=== PATIENT | male | born 2000 | race Caucasian/White ===

== ENCOUNTER 2019-01-30 07:15 | Day surgery (SDC) | payer BC ==
[~2019-01-30 07:15] MED LIST: Lactated Ringers 1,000 ML IV SCH
[2019-01-30] MEDS ORDERED: Midazolam 1 MG/ML 2 ML SDV IV ONE (07:16)
[2019-01-30] MEDS ORDERED: Propofol 200 MG/20 ML SDV IV ONE (07:16)
--- NOTE | 2019-01-30 08:53 | PCM.OPNOTE ---
- General Post-Op/Procedure Note Date of Surgery/Procedure: 01/30/19 Operative Procedure(s): egd with bx Findings: gastroduodenitis Pre Op Diagnosis: emesis Post-Op Diagnosis: gastroduodenitis Anesthesia Technique: SHAUN Primary Surgeon: Kemar Joseph Anesthesia Provider: Tania Simon Pathology: stomach and duodenum Complications: None Condition: Good Free Text/Narrative:: see dictation
--- NOTE | 2019-01-30 13:01 | OR ---
DATE OF OPERATION: 01/30/2019 SURGEON: Kemar Joseph MD PROCEDURES PERFORMED: Esophagogastroduodenoscopy with cold forceps biopsy. PREOPERATIVE DIAGNOSIS: History of emesis. POSTOPERATIVE DIAGNOSIS: Gastroduodenitis. INDICATIONS FOR PROCEDURE: This is a 18-year-old white male who has had issues with vomiting in the morning. Does not bring really up anything other than mucus. Has been occurring since August. He was placed on a PPI several weeks ago with some decrease in his emesis, however, it has persisted. H. pylori was negative as well. He was offered and accepted an EGD. DESCRIPTION OF OPERATION: After an excellent IV sedation was administered, the bite block was inserted. Flexible endoscope was passed without difficulty down the patient's esophagus and into the stomach. The stomach was insufflated. Scope was passed through the pylorus, second portion of the duodenum, and then slowly withdrawn. The following findings were noted. Duodenum demonstrated some duodenitis. Biopsies were taken. Stomach, gastritis, friable mucosa, biopsies were taken. Esophagus was unremarkable. Stomach was deflated. Scope was removed. The patient tolerated the procedure well and was taken to Recovery in a good condition. Results by letter. /[id number] /BERYL
== END 2019-01-30 09:33 | disposition home or self-care (01) ==
LOC: FB.SDS 07:15
PROVIDERS: ATTEND Surgery
DX: K29.90 Gastroduodenitis, unspecified, without bleeding (principal); Z80.0 Family history of malignant neoplasm of digestive organs; Z79.899 Other long term (current) drug therapy
CPT/HCPCS: 88305; 88342; J2250; J2704; J7120